=== PATIENT | male | born 1985 | race Caucasian/White ===

== ENCOUNTER 2020-12-07 00:06 | Emergency (ER) | payer SELFPAY | END 2020-12-07 01:00 | disposition home or self-care (01) | LOC: MW.ED 00:06 | DX: Z53.21 Procedure and treatment not carried out due to patient leaving prior to being seen by health care provider (principal) ==

== ENCOUNTER 2020-12-28 15:37 | Observation (INO) | payer SELFPAY ==
--- NOTE | 2020-12-28 15:46 | EDM.PDOC ---
ED HPI GENERAL MEDICAL PROBLEM - General Chief Complaint: Drug or Alcohol Abuse Stated Complaint: BROGHT IN BY AMBULANCE Time Seen by Provider: 12/28/20 15:44 Source of Information: Reports: Patient, EMS History Limitations: Reports: No Limitations - History of Present Illness INITIAL COMMENTS - FREE TEXT/NARRATIVE: Patient is a 35-year-old male brought in today for heroin overdose. Patient was at home his parents found him unconscious not breathing they gave him a dose of Narcan. EMS arrived patient was difficult response to ACLS CPR gave patient additional 2 doses of Narcan patient had a total of 12 mg Narcan. Patient was awake up talking but states he feels short of breath. Patient dates that he smoked heroin earlier and also injected it. Patient denied any other drug use but did state he may have had some alcohol. - Related Data Allergies Allergy/AdvReac Type Severity Reaction Status Date / Time No Known Allergies Allergy Verified 12/28/20 15:51 Home Meds: Home Meds . [No Known Home Meds] 12/28/20 [History] Past Medical History HEENT History: Reports: None Cardiovascular History: Reports: None Respiratory History: Reports: None Gastrointestinal History: Reports: None Genitourinary History: Reports: None Musculoskeletal History: Reports: None Neurological History: Reports: None Psychiatric History: Reports: Other (See Below) Other Psychiatric History: drug overdose Endocrine/Metabolic History: Reports: None Hematologic History: Reports: None Immunologic History: Reports: None Oncologic (Cancer) History: Reports: None Dermatologic History: Reports: None - Past Surgical History Head Surgeries/Procedures: Reports: None HEENT Surgical History: Reports: None Cardiovascular Surgical History: Reports: None GI Surgical History: Reports: None Male Surgical History: Reports: None Musculoskeletal Surgical History: Reports: None Social & Family History - Family History Family Medical History: No Pertinent Family History ED ROS GENERAL - Review of Systems Review Of Systems: See Below Constitutional: Reports: No Symptoms HEENT: Reports: No Symptoms Respiratory: Reports: Shortness of Breath Cardiovascular: Reports: No Symptoms Endocrine: Reports: No Symptoms GI/Abdominal: Reports: No Symptoms : Reports: No Symptoms Musculoskeletal: Reports: No Symptoms Skin: Reports: No Symptoms Neurological: Reports: No Symptoms Psychiatric: Reports: No Symptoms Hematologic/Lymphatic: Reports: No Symptoms Immunologic: Reports: No Symptoms ED EXAM, GENERAL - Physical Exam Exam: See Below Exam Limited By: No Limitations General Appearance: Alert Eye Exam: Bilateral Eye: EOMI, PERRL Head: Atraumatic, Normocephalic Neck: Normal Inspection Respiratory/Chest: No Respiratory Distress, Rhonchi Cardiovascular: Normal Peripheral Pulses, Regular Rate, Rhythm GI/Abdominal: Normal Bowel Sounds, Soft, Non-Tender Neurological: Alert, Oriented, CN II-XII Intact #1 Interpretation EKG Date: 12/28/20 Time: 15:44 Rhythm: NSR Rate (Beats/Min): 99 ST-T: Normal Course - Vital Signs Last Recorded V/S: Last Vital Signs Temp 97.0 F 12/28/20 15:52 Pulse 100 12/28/20 15:52 Resp 20 12/28/20 15:52 BP 171/98 H 12/28/20 15:52 Pulse Ox 97 12/28/20 15:52 - Orders/Labs/Meds Orders: Active Orders 24 hr Category Date Time Status Patient Status [ADT] Routine ADT 12/28/20 18:14 Ordered Chest PE [Ang Chest] [CT] Stat Exams 12/28/20 17:39 Taken CORONAVIRUS COVID-19 SE [MOLEC] Stat Lab 12/28/20 17:42 Received Sodium Chloride 0.9% [Normal Saline] 1,000 ml Med 12/28/20 17:39 Active IV .Bolus Medication Orders Sodium Chloride (Normal Saline) 1,000 mls @ 1,000 mls/hr IV .Bolus ONE Stop: 12/28/20 18:38 Labs: Laboratory Tests 12/28/20 12/28/20 12/28/20 Range/Units 16:12 16:12 16:12 WBC 10.12 (4.0-11.0) K/uL RBC 4.33 L (4.50-5.90) M/uL Hgb 14.3 (13.0-17.0) g/dL Hct 41.5 (38.0-50.0) % MCV 95.8 (80.0-98.0) fL MCH 33.0 H (27.0-32.0) pg MCHC 34.5 (31.0-37.0) g/dL RDW Std Deviation 47.2 (28.0-62.0) fl RDW Coeff of Jd 13 (11.0-15.0) % Plt Count 422 H (150-400) K/uL MPV 9.10 (7.40-12.00) fL Neut % (Auto) 77.0 (48.0-80.0) % Lymph % (Auto) 17.1 (16.0-40.0) % [place] % (Auto) 5.3 (0.0-15.0) % Eos % (Auto) 0.5 (0.0-7.0) % Baso % (Auto) 0.1 (0.0-1.5) % Neut # (Auto) 7.8 H (1.4-5.7) K/uL Lymph # (Auto) 1.7 (0.6-2.4) K/uL [place] # (Auto) 0.5 (0.0-0.8) K/uL Eos # (Auto) 0.1 (0.0-0.7) K/uL Baso # (Auto) 0.0 (0.0-0.1) K/uL Nucleated RBC % 0.0 /100WBC Nucleated RBCs # 0 K/uL D-Dimer, Quantitative 1.38 H (0.0-0.50) mg/L FEU Sodium 142 (136-148) mmol/L Potassium 3.8 (3.5-5.1) mmol/L Chloride 102 (98-107) mmol/L Carbon Dioxide 29.1 (21.0-32.0) mmol/L BUN 12 (7.0-18.0) mg/dL Creatinine 1.4 H (0.8-1.3) mg/dL Est Cr Clr Drug Dosing 76.77 mL/min Estimated GFR (MDRD) 58.0 ml/min Glucose 98 (74-106) mg/dL Calcium 9.1 (8.5-10.1) mg/dL Total Bilirubin 0.9 (0.2-1.0) mg/dL AST 65 H (15-37) IU/L ALT 78 H (14-63) IU/L Alkaline Phosphatase 79 (46-116) U/L Troponin I (0.000-0.056) ng/mL Total Protein 7.1 (6.4-8.2) g/dL Albumin 3.7 (3.4-5.0) g/dL Globulin 3.4 (2.6-4.0) g/dL Albumin/Globulin Ratio 1.1 (0.9-1.6) Ethyl Alcohol < 3.0 mg/dL 12/28/20 Range/Units 16:12 WBC (4.0-11.0) K/uL RBC (4.50-5.90) M/uL Hgb (13.0-17.0) g/dL Hct (38.0-50.0) % MCV (80.0-98.0) fL MCH (27.0-32.0) pg MCHC (31.0-37.0) g/dL RDW Std Deviation (28.0-62.0) fl RDW Coeff of Jd (11.0-15.0) % Plt Count (150-400) K/uL MPV (7.40-12.00) fL Neut % (Auto) (48.0-80.0) % Lymph % (Auto) (16.0-40.0) % [place] % (Auto) (0.0-15.0) % Eos % (Auto) (0.0-7.0) % Baso % (Auto) (0.0-1.5) % Neut # (Auto) (1.4-5.7) K/uL Lymph # (Auto) (0.6-2.4) K/uL [place] # (Auto) (0.0-0.8) K/uL Eos # (Auto) (0.0-0.7) K/uL Baso # (Auto) (0.0-0.1) K/uL Nucleated RBC % /100WBC Nucleated RBCs # K/uL D-Dimer, Quantitative (0.0-0.50) mg/L FEU Sodium (136-148) mmol/L Potassium (3.5-5.1) mmol/L Chloride (98-107) mmol/L Carbon Dioxide (21.0-32.0) mmol/L BUN (7.0-18.0) mg/dL Creatinine (0.8-1.3) mg/dL Est Cr Clr Drug Dosing mL/min Estimated GFR (MDRD) ml/min Glucose (74-106) mg/dL Calcium (8.5-10.1) mg/dL Total Bilirubin (0.2-1.0) mg/dL AST (15-37) IU/L ALT (14-63) IU/L Alkaline Phosphatase (46-116) U/L Troponin I < 0.050 (0.000-0.056) ng/mL Total Protein (6.4-8.2) g/dL Albumin (3.4-5.0) g/dL Globulin (2.6-4.0) g/dL Albumin/Globulin Ratio (0.9-1.6) Ethyl Alcohol mg/dL Meds: Medications Generic Name Dose Route Start Last Admin Trade Name Freq PRN Reason Stop Dose Admin Sodium Chloride 1,000 mls @ 1,000 mls/hr 12/28/20 17:39 Normal Saline IV 12/28/20 18:38 .Bolus ONE Discontinued Medications Generic Name Dose Route Start Last Admin Trade Name Freq PRN Reason Stop Dose Admin Ampicillin Sodium/Sulbactam 100 mls @ 200 mls/hr 12/28/20 17:26 Sodium 3 gm/ Sodium Chloride IV 12/28/20 17:55 ONETIME ONE Iopamidol 100 ml 12/28/20 18:13 12/28/20 18:14 Iopamidol 755 Mg/Ml 500 Ml Multipack Bottle IVPUSH 12/28/20 18:14 100 ml ONETIME ONE Administration - Re-Assessments/Exams Free Text/Narrative Re-Assessment/Exam: 12/28/20 18:13 Patient possibly has aspirated pneumonia. Patient started on antibiotics. Patient will have a CT PE. We spoke to hospitalist was sent to the patient but is pending CAT scan. Departure - Departure Time of Disposition: 18:13 Disposition: Refer to Observation Condition: Good Clinical Impression: Aspiration pneumonia Drug overdose Qualifiers: Encounter type: initial encounter Injury intent: accidental or unintentional Qualified Code(s): T50.901A - Poisoning by unspecified drugs, medicaments and biological substances, accidental (unintentional), initial encounter - Discharge Information *PRESCRIPTION DRUG MONITORING PROGRAM REVIEWED*: Not Applicable *COPY OF PRESCRIPTION DRUG MONITORING REPORT IN PATIENT SHAYY: Not Applicable Referrals: PCP,None [Primary Care Provider] - Forms: ED Department Discharge Critical Care Note - Critical Care Note Total Time (mins): 45 Comments: Critical Care Procedure Note Authorized and Performed by: Dr. Ochoa Total critical care time: Approximately Due to a high probability of clinically significant, life threatening deterioration, the patient required my highest level of preparedness to intervene emergently and I personally spent this critical care time directly and personally managing the patient. This critical care time included obtaining a history; examining the patient; pulse oximetry; ordering and review of studies; arranging urgent treatment with development of a management plan; evaluation of patient's response to treatment; frequent reassessment; and, discussions with other providers. This critical care time was performed to assess and manage the high probability of imminent, life-threatening deterioration that could result in multi-organ failure. It was exclusive of separately billable procedures and treating other patients and teaching time. Sepsis Event Note (ED) - Focused Exam Vital Signs: Vital Signs Temp Pulse Resp BP Pulse Ox 12/28/20 15:52 97.0 F 100 20 171/98 H 97 - My Orders Last 24 Hours: My Active Orders 12/28/20 17:39 Chest PE [Ang Chest] [CT] Stat Sodium Chloride 0.9% [Normal Saline] 1,000 ml IV .Bolus 12/28/20 17:42 CORONAVIRUS COVID-19 SE [MOLEC] Stat 12/28/20 18:14 Patient Status [ADT] Routine - Assessment/Plan Last 24 Hours: My Active Orders 12/28/20 17:39 Chest PE [Ang Chest] [CT] Stat Sodium Chloride 0.9% [Normal Saline] 1,000 ml IV .Bolus 12/28/20 17:42 CORONAVIRUS COVID-19 SE [MOLEC] Stat 12/28/20 18:14 Patient Status [ADT] Routine Plan: Patient is a 35-year-old male presents today for heroin overdose. Patient was given dose of Narcan by parents and 2 by EMS. On exam patient is awake and seems to be at his baseline but does have some rhonchi on exam. Patient is sa tting 80% on 2 L oxygen. Patient will have x-ray labs and reassess.
[2020-12-28 16:42] LABS: BLOOD UREA NITROGEN,BUN 12 mg/dL (7.0-18.0); CARBON DIOXIDE,CO2 29.1 mmol/L (21.0-32.0); CHLORIDE,CL 102 mmol/L (98-107); GLUCOSE RANDOM 98 mg/dL (74-106); POTASSIUM,K 3.8 mmol/L (3.5-5.1); SODIUM,NA 142 mmol/L (136-148)
--- NOTE | 2020-12-28 16:56 | CR ---
INDICATION: Dyspnea TECHNIQUE: Chest 1 views COMPARISON: December 03, 2015 FINDINGS: Cardiovascular and mediastinum: Heart size and vasculature are normal in caliber and appearance. Lungs and pleural spaces: There are ill-defined right perihilar infiltrates. Left lung is clear. No effusions and no pneumothorax. Bones and soft tissues: No significant findings. IMPRESSION: Right perihilar pneumonia is suspected. Dictated by Alex Daniels MD @ 12/28/2020 4:54:[address] Alex Daniels @ Dec 28 2020 4:54PM
[2020-12-28] MEDS ORDERED: Ampicillin/Sulbactam Na 3 GM in Sodium Chloride 0.9% 100 ML IV ONE (17:26)
[2020-12-28] MEDS ORDERED: Sodium Chloride 0.9% 1,000 ML IV ONE (17:39)
[2020-12-28] MEDS ORDERED: Iopamidol 755 MG/ML 500 ML Multipack Bottle IVPUSH ONE (18:13)
--- NOTE | 2020-12-28 18:57 | CT ---
HISTORY: Overdose. Elevated D-dimer. COMPARISON: None. TECHNIQUE: Axial images were obtained through the chest following 100 cc of Isovue-370 intravenous contrast. FINDINGS: Suboptimal contrast bolus. No definite central pulmonary embolism. Segmental branches cannot be evaluated. There coarse nodular ground-glass opacities in the central in lower lungs that may represent pneumonitis/aspiration versus other infectious or inflammatory etiology. No thoracic lymphadenopathy. No pleural or pericardial effusion. The adrenal glands are normal. The bones are within normal. IMPRESSION: Diffuse central and lower lobe nodular ground-glass opacities consistent with pneumonia or aspiration pneumonitis. Suboptimal study for evaluation of pulmonary embolism. No pulmonary embolism identified. Please note that all CT scans at this facility use dose modulation, iterative reconstruction, and/or weight-based dosing when appropriate to reduce radiation dose to as low as reasonably achievable. Dictated by Sully Brambila MD @ 12/28/2020 6:56:[address] Sully Brambila @ Dec 28 2020 6:56PM
[2020-12-28] MEDS ORDERED: Albuterol/Ipratropium 3.0-0.5 MG/3 ML Neb Soln NEB PRN (19:26)
[2020-12-28] MEDS ORDERED: Acetaminophen 325 MG Tab PO PRN (19:26)
[2020-12-28] MEDS ORDERED: Ondansetron 4 MG/2 ML SDV IVPUSH PRN (19:26)
--- NOTE | 2020-12-28 19:39 | PCM.HP.2 ---
H&P History of Present Illness - General Date of Service: 12/28/20 Admit Problem/Dx: Admission Diagnosis/Problem Admission Diagnosis/Problem Aspiration pneumonia - History of Present Illness Initial Comments - Free Text/Narative: Patient is a 35-year-old male brought in today for heroin overdose. Patient states he snorted some heroine earlier today and later he used IV heroine. His sister heard a loud gasp in the adjoining room and came to [facility] on him and found in unconscious in his chair, she administered Narcan nasal spray which didnt help, EMS arrived patient was difficult to arouse, reportedly no pulse was found so ACLS CPR was initiated (2cycles) gave patient additional 2 doses of Narcan patient had a total of 12 mg Narcan. Patient was awake in the ER, neurologically intact, but felt short of breath. CXR showed possible Aspiration PNA, CTA chest confirmed pneumonia. Patient denied any other drug use but did state he may have had some alcohol. He states he started abusing drugs as a teen ager and ever since got worse, he was in rehab at [place] and was sober for 3 years, but once he moved back to [place] he relapsed, he states he had 5 to7 episodes of overdosed where his breathing stopped. Patient was requiring 2 to 3 lts of oxygen in ER, was admitted for further management. Headache Pain Score (Numeric/FACES): 2 - Related Data Allergies/Adverse Reactions: Allergies Allergy/AdvReac Type Severity Reaction Status Date / Time No Known Allergies Allergy Verified 12/28/20 15:51 Home Medications: Home Meds . [No Known Home Meds] 12/28/20 [History] Past Medical History HEENT History: Reports: None Cardiovascular History: Reports: Hypertension Respiratory History: Reports: None Gastrointestinal History: Reports: None Genitourinary History: Reports: None Musculoskeletal History: Reports: None Neurological History: Reports: None Psychiatric History: Reports: Other (See Below) Other Psychiatric History: drug overdose Endocrine/Metabolic History: Reports: None Hematologic History: Reports: None Immunologic History: Reports: None Oncologic (Cancer) History: Reports: None Dermatologic History: Reports: None - Infectious Disease History Infectious Disease History: Reports: Chicken Pox - Past Surgical History Head Surgeries/Procedures: Reports: None HEENT Surgical History: Reports: Oral Surgery Cardiovascular Surgical History: Reports: None GI Surgical History: Reports: None Male Surgical History: Reports: None Musculoskeletal Surgical History: Reports: None Social & Family History - Family History Family Medical History: No Pertinent Family History - Tobacco Use Tobacco Use Status *Q: Current Every Day Tobacco User Years of Tobacco use: 2 Packs/Tins Daily: 1 - Recreational Drug Use Recreational Drug Use: Yes Recreational Drug Type: Reports: Heroin, Marijuana/Hashish, Other (see below) Other Recreational Drug Type: opiods Recreational Drug Use Frequency: Daily H&P Review of Systems - Review of Systems: Review Of Systems: See Below General: Denies: Fever, Chills Pulmonary: Reports: Shortness of Breath, Pleuritic Chest Pain, Cough, Sputum. Denies: Wheezing Cardiovascular: Denies: Chest Pain, Palpitations Gastrointestinal: Denies: Abdominal Pain, Anorexia Genitourinary: Denies: Dysuria, Frequency, Retention Musculoskeletal: Reports: Neck Pain. Denies: Shoulder Pain, Arm Pain Skin: Denies: Cyanosis, Jaundice, Mottled Psychiatric: Denies: Confusion, Depression, Mood Lability Exam - Exam Exam: See Below - Vital Signs Vital Signs: Last Vital Signs Temp 36.1 C 12/28/20 15:52 Pulse 100 12/28/20 15:52 Resp 20 12/28/20 15:52 BP 171/98 H 12/28/20 15:52 Pulse Ox 97 12/28/20 15:52 Weight: 122.47 kg - Exam General: Alert, Oriented, Cooperative Neck: Supple, Trachea Midline Lungs: Normal Respiratory Effort, Rhonchi Cardiovascular: Regular Rate, Regular Rhythm, Normal S1, Normal S2 GI/Abdominal Exam: Normal Bowel Sounds, Soft, Non-Tender - Patient Data Lab Results Last 24 hrs: Laboratory Results - last 24 hr 12/28/20 12/28/20 12/28/20 Range/Units 16:12 16:12 16:12 WBC 10.12 (4.0-11.0) K/uL RBC 4.33 L (4.50-5.90) M/uL Hgb 14.3 (13.0-17.0) g/dL Hct 41.5 (38.0-50.0) % MCV 95.8 (80.0-98.0) fL MCH 33.0 H (27.0-32.0) pg MCHC 34.5 (31.0-37.0) g/dL RDW Std Deviation 47.2 (28.0-62.0) fl RDW Coeff of Jd 13 (11.0-15.0) % Plt Count 422 H (150-400) K/uL MPV 9.10 (7.40-12.00) fL Neut % (Auto) 77.0 (48.0-80.0) % Lymph % (Auto) 17.1 (16.0-40.0) % [place] % (Auto) 5.3 (0.0-15.0) % Eos % (Auto) 0.5 (0.0-7.0) % Baso % (Auto) 0.1 (0.0-1.5) % Neut # (Auto) 7.8 H (1.4-5.7) K/uL Lymph # (Auto) 1.7 (0.6-2.4) K/uL [place] # (Auto) 0.5 (0.0-0.8) K/uL Eos # (Auto) 0.1 (0.0-0.7) K/uL Baso # (Auto) 0.0 (0.0-0.1) K/uL Nucleated RBC % 0.0 /100WBC Nucleated RBCs # 0 K/uL D-Dimer, Quantitative 1.38 H (0.0-0.50) mg/L FEU Sodium 142 (136-148) mmol/L Potassium 3.8 (3.5-5.1) mmol/L Chloride 102 (98-107) mmol/L Carbon Dioxide 29.1 (21.0-32.0) mmol/L BUN 12 (7.0-18.0) mg/dL Creatinine 1.4 H (0.8-1.3) mg/dL Est Cr Clr Drug Dosing 76.77 mL/min Estimated GFR (MDRD) 58.0 ml/min Glucose 98 (74-106) mg/dL Calcium 9.1 (8.5-10.1) mg/dL Total Bilirubin 0.9 (0.2-1.0) mg/dL AST 65 H (15-37) IU/L ALT 78 H (14-63) IU/L Alkaline Phosphatase 79 (46-116) U/L Troponin I (0.000-0.056) ng/mL Total Protein 7.1 (6.4-8.2) g/dL Albumin 3.7 (3.4-5.0) g/dL Globulin 3.4 (2.6-4.0) g/dL Albumin/Globulin Ratio 1.1 (0.9-1.6) Ethyl Alcohol < 3.0 mg/dL SARS-CoV-2 RNA (SE) (NEGATIVE) 12/28/20 12/28/20 Range/Units 16:12 17:42 WBC (4.0-11.0) K/uL RBC (4.50-5.90) M/uL Hgb (13.0-17.0) g/dL Hct (38.0-50.0) % MCV (80.0-98.0) fL MCH (27.0-32.0) pg MCHC (31.0-37.0) g/dL RDW Std Deviation (28.0-62.0) fl RDW Coeff of Jd (11.0-15.0) % Plt Count (150-400) K/uL MPV (7.40-12.00) fL Neut % (Auto) (48.0-80.0) % Lymph % (Auto) (16.0-40.0) % [place] % (Auto) (0.0-15.0) % Eos % (Auto) (0.0-7.0) % Baso % (Auto) (0.0-1.5) % Neut # (Auto) (1.4-5.7) K/uL Lymph # (Auto) (0.6-2.4) K/uL [place] # (Auto) (0.0-0.8) K/uL Eos # (Auto) (0.0-0.7) K/uL Baso # (Auto) (0.0-0.1) K/uL Nucleated RBC % /100WBC Nucleated RBCs # K/uL D-Dimer, Quantitative (0.0-0.50) mg/L FEU Sodium (136-148) mmol/L Potassium (3.5-5.1) mmol/L Chloride (98-107) mmol/L Carbon Dioxide (21.0-32.0) mmol/L BUN (7.0-18.0) mg/dL Creatinine (0.8-1.3) mg/dL Est Cr Clr Drug Dosing mL/min Estimated GFR (MDRD) ml/min Glucose (74-106) mg/dL Calcium (8.5-10.1) mg/dL Total Bilirubin (0.2-1.0) mg/dL AST (15-37) IU/L ALT (14-63) IU/L Alkaline Phosphatase (46-116) U/L Troponin I < 0.050 (0.000-0.056) ng/mL Total Protein (6.4-8.2) g/dL Albumin (3.4-5.0) g/dL Globulin (2.6-4.0) g/dL Albumin/Globulin Ratio (0.9-1.6) Ethyl Alcohol mg/dL SARS-CoV-2 RNA (SE) NEGATIVE (NEGATIVE) Result Diagrams: 12/28/20 16:12 12/28/20 16:12 Sepsis Event Note - Evaluation Sepsis Screening Result: No Definite Risk - Focused Exam Vital Signs: Vital Signs Temp Pulse Resp BP Pulse Ox 12/28/20 15:52 36.1 C 100 20 171/98 H 97 - Problem List (1) Drug abuse SNOMED Code(s): 79638540 ICD Code: F19.10 - OTHER PSYCHOACTIVE SUBSTANCE ABUSE, UNCOMPLICATED Status: Acute Current Visit: Yes (2) Aspiration pneumonia SNOMED Code(s): 588751928 ICD Code: J69.0 - PNEUMONITIS DUE TO INHALATION OF FOOD AND VOMIT Status: Acute Current Visit: Yes (3) Overdose SNOMED Code(s): 07351048 ICD Code: T50.901A - POISONING BY UNSP DRUG/MEDS/BIOL SUBST, ACCIDENTAL, INIT Status: Acute Current Visit: Yes Qualifiers: Encounter type: initial encounter Injury intent: accidental or unintentional Qualified Code(s): T50.901A - Poisoning by unspecified drugs, medicaments and biological substances, accidental (unintentional), initial encounter Problem List Initiated/Reviewed/Updated: Yes Orders Last 24hrs: Active Orders 24 hr Category Date Time Status Patient Status [ADT] Routine ADT 12/28/20 18:14 Active Ambulate [RC] ASDIRECTED Care 12/28/20 19:26 Active Antiembolic Devices [RC] PER UNIT ROUTINE Care 12/28/20 19:31 Active Oxygen Therapy [RC] PRN Care 12/28/20 19:28 Active RT Aerosol Therapy [RC] ASDIRECTED Care 12/28/20 19:31 Active VTE/DVT Education [RC] PER UNIT ROUTINE Care 12/28/20 19:28 Active Vital Signs [RC] Q4H Care 12/28/20 19:28 Active Regular Diet [DIET] Diet 12/28/20 Dinner Active Acetaminophen [TylenoL] Med 12/28/20 19:26 Active 650 mg PO Q4H PRN Albuterol/Ipratropium [DuoNeb 3.0-0.5 MG/3 ML] Med 12/28/20 19:26 Active 3 ml NEB Q4HRRT PRN Ampicillin/Sulbactam Na [Unasyn] 3 gm Med 12/28/20 23:00 Ordered Sodium Chloride 0.9% [Normal Saline] 100 ml IV Q6H Lactated Ringers [Ringers, Lactated] 1,000 ml Med 12/28/20 19:30 Active IV ASDIRECTED Ondansetron [Zofran] Med 12/28/20 19:26 Active 4 mg IVPUSH Q4H PRN Sequential Compression Device [OM.PC] Per Unit Routine Oth 12/28/20 19:31 Ordered Resuscitation Status Routine Resus Stat 12/28/20 19:26 Ordered Medication Orders Acetaminophen (Acetaminophen 325 Mg Tab) 650 mg PO Q4H PRN PRN Reason: Pain (Mild 1-3)/fever Albuterol/Ipratropium (Albuterol/Ipratropium 3.0-0.5 Mg/3 Ml Neb Soln) 3 ml NEB Q4HRRT PRN PRN Reason: Shortness Of Breath/wheezing Lactated Ringer's (Ringers, Lactated) 1,000 mls @ 125 mls/hr IV ASDIRECTED MAJO Ampicillin Sodium/Sulbactam (Sodium 3 gm/ Sodium Chloride) 100 mls @ 200 mls/hr IV Q6H MAJO Ondansetron HCl (Ondansetron 4 Mg/2 Ml Sdv) 4 mg IVPUSH Q4H PRN PRN Reason: Nausea/Vomiting Assessment/Plan Comment:: 35 y/o M admitted for hypoxia secondary to aspiration pneumonitis vs pneumonia s/p drug overdose start IV Unasyn start IV fluids Oxygen as needed, has been weaned off by the time i saw the patient DuoNEbs as needed Tylenol for pain Patient counseled extensively against drug abuse, he is thinking of going to rehab again upon dc.
[2020-12-28] MEDS: Lactated Ringers 1,000 ML IV SCH (20:45)
[2020-12-28] MEDS ORDERED: Lactated Ringers 500 ML IV ONE (21:29)
[2020-12-28] MEDS: Ampicillin/Sulbactam Na 3 GM in Sodium Chloride 0.9% 100 ML IV SCH (22:01)
[2020-12-28] MEDS ORDERED: Ibuprofen 400 MG Tab PO PRN (23:12)
[2020-12-29] MEDS: Lactated Ringers 1,000 ML IV SCH ×2 (01:08→09:58)
[2020-12-29] MEDS: Ampicillin/Sulbactam Na 3 GM in Sodium Chloride 0.9% 100 ML IV SCH ×2 (04:15→10:36)
[2020-12-29 06:03] LABS: BLOOD UREA NITROGEN,BUN 11 mg/dL (7.0-18.0); CARBON DIOXIDE,CO2 28.8 mmol/L (21.0-32.0); CHLORIDE,CL 106 mmol/L (98-107); GLUCOSE RANDOM 117 mg/dL (74-106); POTASSIUM,K 3.7 mmol/L (3.5-5.1); SODIUM,NA 142 mmol/L (136-148)
[2020-12-29 07:32] VITALS: PULSE 84
--- NOTE | 2020-12-29 10:36 | PCM.DCSUM1 ---
Discharge Summary - Hospital Course Brief History: Patient is a 35-year-old male brought in today for heroin overdose. Patient states he snorted some heroine earlier today and later he used IV heroine. His sister heard a loud gasp in the adjoining room and came to [facility] on him and found in unconscious in his chair, she administered Narcan nasal spray which didnt help, EMS arrived patient was difficult to arouse, reportedly no pulse was found so ACLS CPR was initiated (2cycles) gave patient additional 2 doses of Narcan patient had a total of 12 mg Narcan. Patient was awake in the ER, neurologically intact, but felt short of breath. CXR showed possible Aspiration PNA, CTA chest confirmed pneumonia. Patient denied any other drug use but did state he may have had some alcohol. He states he started abusing drugs as a teen ager and ever since got worse, he was in rehab at [place] and was sober for 3 years, but once he moved back to [place] he relapsed, he states he had 5 to7 episodes of overdosed where his breathing stopped. Patient was requiring 2 to 3 lts of oxygen in ER, was admitted for further management. Diagnosis: Stroke: No - Discharge Data Discharge Date: 12/29/20 Discharge Disposition: Home, Self-Care 01 Condition: Stable - Referral to Home Health Primary Care Physician: PCP None - Discharge Diagnosis/Problem(s) (1) Aspiration pneumonia SNOMED Code(s): 585777940 ICD Code: J69.0 - PNEUMONITIS DUE TO INHALATION OF FOOD AND VOMIT Status: Acute Current Visit: Yes (2) Drug abuse SNOMED Code(s): 43698814 ICD Code: F19.10 - OTHER PSYCHOACTIVE SUBSTANCE ABUSE, UNCOMPLICATED Status: Acute Current Visit: Yes (3) Overdose SNOMED Code(s): 89118238 ICD Code: T50.901A - POISONING BY UNSP DRUG/MEDS/BIOL SUBST, ACCIDENTAL, INIT Status: Acute Current Visit: Yes Qualifiers: Encounter type: initial encounter Injury intent: accidental or unintentional Qualified Code(s): T50.901A - Poisoning by unspecified drugs, medicaments and biological substances, accidental (unintentional), initial encounter - Patient Summary/Data Hospital Course: Admission diagnoses Heroin overdose Aspiration pneumonia Status post CPR and Narcan administration Discharge diagnoses Heroin overdose Aspiration pneumonia Status post CPR and Narcan administration Does not was admitted secondary to aspiration pneumonia after heroin overdose with subsequent CPR and Narcan administration. He reports he is feeling much better today he is currently off oxygen. He continues to have some productive sputum but he reports this is loosening up. He continues to have some midsternal tenderness status post CPR but he reports this is to light palpation. He was counseled quite heavily on avoiding drug abuse and he will seek rehabilitation as an outpatient. He is to continue Augmentin twice daily for 7 more days for treatment of aspiration pneumonia. He is to return to the ER if he is to experience fevers chills chest pain or worsening shortness of breath. He verbalized understanding. He is to follow-up with PCP in 1 week return to the ER or clinic sooner if concerns should arise. He was counseled on going to [facility] to help with outpatient rehabilitation services and counseling. - Patient Instructions Diet: Regular Diet as Tolerated Activity: No Strenuous Activities Driving: Do Not Drive Showering/Bathing: May Shower Notify Provider of: Fever, Increased Pain, Swelling and Redness, Drainage, Nausea and/or Vomiting Other/Special Instructions: Refrain from recreational drug use. [facility] as outpatient resources for drug abuse. - Discharge Plan *PRESCRIPTION DRUG MONITORING PROGRAM REVIEWED*: Not Applicable *COPY OF PRESCRIPTION DRUG MONITORING REPORT IN PATIENT SHAYY: Not Applicable Prescriptions/Med Rec: Amoxicillin/Clavulanate K [Augmentin 875-125 MG] 1 tab PO BID #14 tablet Home Medications: Home Meds Amoxicillin/Clavulanate K [Augmentin 875-125 MG] 1 tab PO BID #14 tablet 12/29/20 [Rx] Oxygen Therapy Mode: Room Air Patient Handouts: Amoxicillin; Clavulanic Acid Tablets, Aspiration Pneumonia Referrals: Teresita Haas MD [Physician] - 01/05/21 4:00 pm - Discharge Summary/Plan Comment DC Time >30 min.: No - Patient Data Vitals - Most Recent: Last Vital Signs Temp 96.6 F L 12/29/20 07:31 Pulse 84 12/29/20 07:31 Resp 22 H 12/29/20 07:31 BP 110/50 L 12/29/20 07:31 Pulse Ox 94 L 12/29/20 07:31 Weight - Most Recent: 140.812 kg I&O - Last 24 hours: Intake & Output 12/28/20 12/29/20 12/29/20 22:59 06:59 14:59 Intake Total 500 Output Total 300 Balance 200 Lab Results - Last 24 hrs: Laboratory Results - last 24 hr 12/28/20 12/28/20 12/28/20 Range/Units 16:12 16:12 16:12 WBC 10.12 (4.0-11.0) K/uL RBC 4.33 L (4.50-5.90) M/uL Hgb 14.3 (13.0-17.0) g/dL Hct 41.5 (38.0-50.0) % MCV 95.8 (80.0-98.0) fL MCH 33.0 H (27.0-32.0) pg MCHC 34.5 (31.0-37.0) g/dL RDW Std Deviation 47.2 (28.0-62.0) fl RDW Coeff of Jd 13 (11.0-15.0) % Plt Count 422 H (150-400) K/uL MPV 9.10 (7.40-12.00) fL Neut % (Auto) 77.0 (48.0-80.0) % Lymph % (Auto) 17.1 (16.0-40.0) % [place] % (Auto) 5.3 (0.0-15.0) % Eos % (Auto) 0.5 (0.0-7.0) % Baso % (Auto) 0.1 (0.0-1.5) % Neut # (Auto) 7.8 H (1.4-5.7) K/uL Lymph # (Auto) 1.7 (0.6-2.4) K/uL [place] # (Auto) 0.5 (0.0-0.8) K/uL Eos # (Auto) 0.1 (0.0-0.7) K/uL Baso # (Auto) 0.0 (0.0-0.1) K/uL Nucleated RBC % 0.0 /100WBC Nucleated RBCs # 0 K/uL D-Dimer, Quantitative 1.38 H (0.0-0.50) mg/L FEU Sodium 142 (136-148) mmol/L Potassium 3.8 (3.5-5.1) mmol/L Chloride 102 (98-107) mmol/L Carbon Dioxide 29.1 (21.0-32.0) mmol/L BUN 12 (7.0-18.0) mg/dL Creatinine 1.4 H (0.8-1.3) mg/dL Est Cr Clr Drug Dosing 76.77 mL/min Estimated GFR (MDRD) 58.0 ml/min Glucose 98 (74-106) mg/dL Calcium 9.1 (8.5-10.1) mg/dL Total Bilirubin 0.9 (0.2-1.0) mg/dL AST 65 H (15-37) IU/L ALT 78 H (14-63) IU/L Alkaline Phosphatase 79 (46-116) U/L Troponin I (0.000-0.056) ng/mL Total Protein 7.1 (6.4-8.2) g/dL Albumin 3.7 (3.4-5.0) g/dL Globulin 3.4 (2.6-4.0) g/dL Albumin/Globulin Ratio 1.1 (0.9-1.6) Ethyl Alcohol < 3.0 mg/dL SARS-CoV-2 RNA (SE) (NEGATIVE) 12/28/20 12/28/20 12/29/20 Range/Units 16:12 17:42 05:18 WBC 13.46 H (4.0-11.0) K/uL RBC 3.56 L (4.50-5.90) M/uL Hgb 11.6 L (13.0-17.0) g/dL Hct 34.3 L (38.0-50.0) % MCV 96.3 (80.0-98.0) fL MCH 32.6 H (27.0-32.0) pg MCHC 33.8 (31.0-37.0) g/dL RDW Std Deviation 46.3 (28.0-62.0) fl RDW Coeff of Jd 13 (11.0-15.0) % Plt Count 311 (150-400) K/uL MPV 9.30 (7.40-12.00) fL Neut % (Auto) 80.0 (48.0-80.0) % Lymph % (Auto) 13.4 L (16.0-40.0) % [place] % (Auto) 6.2 (0.0-15.0) % Eos % (Auto) 0.3 (0.0-7.0) % Baso % (Auto) 0.1 (0.0-1.5) % Neut # (Auto) 10.8 H (1.4-5.7) K/uL Lymph # (Auto) 1.8 (0.6-2.4) K/uL [place] # (Auto) 0.8 (0.0-0.8) K/uL Eos # (Auto) 0.0 (0.0-0.7) K/uL Baso # (Auto) 0.0 (0.0-0.1) K/uL Nucleated RBC % 0.0 /100WBC Nucleated RBCs # 0 K/uL D-Dimer, Quantitative (0.0-0.50) mg/L FEU Sodium (136-148) mmol/L Potassium (3.5-5.1) mmol/L Chloride (98-107) mmol/L Carbon Dioxide (21.0-32.0) mmol/L BUN (7.0-18.0) mg/dL Creatinine (0.8-1.3) mg/dL Est Cr Clr Drug Dosing mL/min Estimated GFR (MDRD) ml/min Glucose (74-106) mg/dL Calcium (8.5-10.1) mg/dL Total Bilirubin (0.2-1.0) mg/dL AST (15-37) IU/L ALT (14-63) IU/L Alkaline Phosphatase (46-116) U/L Troponin I < 0.050 (0.000-0.056) ng/mL Total Protein (6.4-8.2) g/dL Albumin (3.4-5.0) g/dL Globulin (2.6-4.0) g/dL Albumin/Globulin Ratio (0.9-1.6) Ethyl Alcohol mg/dL SARS-CoV-2 RNA (SE) NEGATIVE (NEGATIVE) 12/29/20 Range/Units 05:18 WBC (4.0-11.0) K/uL RBC (4.50-5.90) M/uL Hgb (13.0-17.0) g/dL Hct (38.0-50.0) % MCV (80.0-98.0) fL MCH (27.0-32.0) pg MCHC (31.0-37.0) g/dL RDW Std Deviation (28.0-62.0) fl RDW Coeff of Jd (11.0-15.0) % Plt Count (150-400) K/uL MPV (7.40-12.00) fL Neut % (Auto) (48.0-80.0) % Lymph % (Auto) (16.0-40.0) % [place] % (Auto) (0.0-15.0) % Eos % (Auto) (0.0-7.0) % Baso % (Auto) (0.0-1.5) % Neut # (Auto) (1.4-5.7) K/uL Lymph # (Auto) (0.6-2.4) K/uL [place] # (Auto) (0.0-0.8) K/uL Eos # (Auto) (0.0-0.7) K/uL Baso # (Auto) (0.0-0.1) K/uL Nucleated RBC % /100WBC Nucleated RBCs # K/uL D-Dimer, Quantitative (0.0-0.50) mg/L FEU Sodium 142 (136-148) mmol/L Potassium 3.7 (3.5-5.1) mmol/L Chloride 106 (98-107) mmol/L Carbon Dioxide 28.8 (21.0-32.0) mmol/L BUN 11 (7.0-18.0) mg/dL Creatinine 1.3 (0.8-1.3) mg/dL Est Cr Clr Drug Dosing 85.28 mL/min Estimated GFR (MDRD) > 60.0 ml/min Glucose 117 H (74-106) mg/dL Calcium 8.2 L (8.5-10.1) mg/dL Total Bilirubin (0.2-1.0) mg/dL AST (15-37) IU/L ALT (14-63) IU/L Alkaline Phosphatase (46-116) U/L Troponin I (0.000-0.056) ng/mL Total Protein (6.4-8.2) g/dL Albumin (3.4-5.0) g/dL Globulin (2.6-4.0) g/dL Albumin/Globulin Ratio (0.9-1.6) Ethyl Alcohol mg/dL SARS-CoV-2 RNA (SE) (NEGATIVE) Med Orders - Current: Current Medications Acetaminophen (Acetaminophen 325 Mg Tab) 650 mg PO Q4H PRN PRN Reason: Pain (Mild 1-3)/fever Last Admin: 12/28/20 22:00 Dose: 650 mg Documented by: Albuterol/Ipratropium (Albuterol/Ipratropium 3.0-0.5 Mg/3 Ml Neb Soln) 3 ml NEB Q4HRRT PRN PRN Reason: Shortness Of Breath/wheezing Ampicillin Sodium/Sulbactam (Sodium 3 gm/ Sodium Chloride) 100 mls @ 200 mls/hr IV Q6H [facility] Last Admin: 12/29/20 04:15 Dose: 200 mls/hr Documented by: Ibuprofen (Ibuprofen 400 Mg Tab) 400 mg PO Q6H PRN PRN Reason: Pain Last Admin: 12/28/20 23:59 Dose: 400 mg Documented by: Ondansetron HCl (Ondansetron 4 Mg/2 Ml Sdv) 4 mg IVPUSH Q4H PRN PRN Reason: Nausea/Vomiting Discontinued Medications Ampicillin Sodium/Sulbactam (Sodium 3 gm/ Sodium Chloride) 100 mls @ 200 mls/hr IV ONETIME ONE Stop: 12/28/20 17:55 Last Admin: 12/28/20 18:25 Dose: 200 mls/hr Documented by: Sodium Chloride (Normal Saline) 1,000 mls @ 1,000 mls/hr IV .Bolus ONE Stop: 12/28/20 18:38 Last Admin: 12/28/20 18:21 Dose: 1,000 mls/hr Documented by: Lactated Ringer's (Ringers, Lactated) 1,000 mls @ 125 mls/hr IV ASDIRECTED [facility] Last Admin: 12/29/20 09:58 Dose: 125 mls/hr Documented by: Lactated Ringer's (Ringers, Lactated) 500 mls @ 499.445 mls/hr IV .BOLUS ONE Stop: 12/28/20 22:29 Last Admin: 12/28/20 21:48 Dose: 499.445 mls/hr Documented by: Iopamidol (Iopamidol 755 Mg/Ml 500 Ml Multipack Bottle) 100 ml IVPUSH ONETIME ONE Stop: 12/28/20 18:14 Last Admin: 12/28/20 18:14 Dose: 100 ml Documented by:
[2020-12-29 12:03] VITALS: BP 126/80
== END 2020-12-29 12:20 | disposition home or self-care (01) ==
LOC: MW.ED 15:37 → MW.MS 18:14
PROVIDERS: ADMIT Student in an Organized Health Care Education/Training Program; ATTEND Student in an Organized Health Care Education/Training Program
DX: T40.1X2A Poisoning by heroin, intentional self-harm, initial encounter (principal); F19.10 Other psychoactive substance abuse, uncomplicated; I10 Essential (primary) hypertension; F17.210 Nicotine dependence, cigarettes, uncomplicated; J69.0 Pneumonitis due to inhalation of food and vomit; R09.02 Hypoxemia; Z20.822 Contact with and (suspected) exposure to COVID-19
CPT/HCPCS: 36415; 71045; 71275; 80048; 80053; 80307; 84484; 85025; 85379; 87635; 93005; A9270; J0295; J7030; J7120; Q9967; 93010; 96365; 96376; 99285-25; 99291; G0378; U0002

== ENCOUNTER 2022-05-09 23:27 | Emergency (ER) | payer SELFPAY ==
[2022-05-09] MEDS ORDERED: Albuterol/Ipratropium 3.0-0.5 MG/3 ML Neb Soln NEB ONE (23:28)
[2022-05-09] MEDS ORDERED: Sodium Chloride 0.9% 1,000 ML IV ONE (23:28)
[2022-05-09] MEDS ORDERED: Ondansetron 4 MG/2 ML SDV IVPUSH ONE (23:30)
[2022-05-10 00:45] LABS: CARBON DIOXIDE,CO2 28.2 mmol/L (21.0-32.0); POTASSIUM,K 4.2 mmol/L (3.5-5.1)
[2022-05-10] MEDS ORDERED: Furosemide 40 MG/4 ML VIAL IVPUSH ONE (01:15)
[2022-05-10] MEDS ORDERED: Cefepime 2 GM in Premix Bag 1 BAG IV ONE (01:59)
[2022-05-10 04:47] VITALS: BP 95/62; PULSE 104
== END 2022-05-10 05:58 ==
LOC: MW.ED 23:27
DX: T40.411A Poisoning by fentanyl or fentanyl analogs, accidental (unintentional), initial encounter (principal); J81.1 Chronic pulmonary edema; Z91.048 Other nonmedicinal substance allergy status; Z20.822 Contact with and (suspected) exposure to COVID-19
CPT/HCPCS: 36415; 36600; 71045; 80053; 80305; 81001; 82803; 84484; 85025; 87635; 93005; 96361; 96365; 96375; 99285; J0692; J1940; J2405; J7030; J7620-GY; U0002

== ENCOUNTER 2023-07-30 12:40 | Emergency (ER) | payer SELFPAY ==
[2023-07-30 14:01] VITALS: BP 162/90; PULSE 78
== END 2023-07-30 14:03 | disposition home or self-care (01) ==
LOC: MW.ED 12:40
DX: Z02.89 Encounter for other administrative examinations (principal); Z91.048 Other nonmedicinal substance allergy status
CPT/HCPCS: 99281; 99283